=== PATIENT | female | born 1995 | race Caucasian/White ===

== ENCOUNTER → 2020-05-01 10:15 | Outpatient (CLI) | payer OTHER, SELFPAY ==
--- NOTE | ~2020-05-01 | US_ITS ---
EXAMINATION: US OB >= 14 weeks Fetus DATE: 05/01/2020 10:52 INDICATION: Second trimester anatomic survey TECHNIQUE: Real-time ultrasound of the pelvis was performed. COMPARISON: None. FINDINGS: There is a single living fetus in breech presentation. The placenta is anterior and 4.6 cm from the i nternal cervical os. heart rate is 141 beats per minute (bpm). cardiac activity and feta l movement are noted. The amniotic fluid index is subjectively normal. The following anatomy was identified as normal: 4 chamber heart 3 vessel cord cord insertion kidneys urinary bladder stomach spine diaphragm ventricles cisterna magna cerebellum The following biometric data were obtained: Biparietal diameter (BPD): 4.5 cm; head circumference (HC): 17.3 cm; abdominal circumference (AC): 14 .3 cm; femur length (FL): 2.9 cm. These measurements are concordant. Estimated weight is 291 g +/- 43 g, which correlates with the 54th percentile when 09/23/2020 is used as estimated date of delivery. As single measurements, these parameters are each equal to the following estimated gestational ages w ith ranges of +/- 2 standard deviations: BPD: 19 weeks 4 days ( 17 weeks 6 days - 21 weeks 2 days). HC: 19 weeks 6 days ( 18 weeks 3 days - 21 weeks 3 days). AC: 19 weeks 5 days ( 17 weeks 4 days - 21 weeks 5 days). FL: 19 weeks 0 days ( 17 weeks 2 days - 20 weeks 6 days). estimated gestational age based solely on measurements from this exam is 19 weeks 4 days +/- 1 weeks 3 days. IMPRESSION: 1. Single living fetus in breech presentation. 2. Estimated weight is 291 g +/- 43 g, which correlates with the 54th percentile when 09/23/2020 is used as estimated date of delivery. Reviewed, dictated and finalized at location A. IMPRESSION: 1. Single living fetus in breech presentation. 2. Estimated weight is 291 g +/- 43 g, which correlates with the 54th per centile when 09/23/2020 is used as estimated date of delivery.
== END ==
PROVIDERS: Visit Provider Obstetrics & Gynecology Gynecology
DX: Z34.92 Encounter for supervision of normal pregnancy, unspecified, second trimester (principal); Z36.9 Encounter for antenatal screening, unspecified
CPT/HCPCS: 76805

== ENCOUNTER → 2020-07-30 13:38 | Outpatient (CLI) | payer OTHER, SELFPAY ==
--- NOTE | ~2020-07-30 | US_ITS ---
EXAMINATION: US OB follow up DATE: 07/30/2020 13:57 INDICATION: Estimated size less than expected for estimated gestational age. Assess growt h and amniotic fluid index. TECHNIQUE: Real-time ultrasound of the pelvis was performed. The interpreting radiologist was not pre sent for the study. COMPARISON: 05/01/2020 FINDINGS: There is a single living fetus in vertex presentation. The placenta is anterior and not low-lying. F etal heart rate is 159 beats per minute (bpm). The amniotic fluid index is 16.7 cm, which is normal (5th%-95%: 8.6-24.2 cm at 32 weeks estimated gestational age). The following biometric data were obtained: BPD: 8.1 cm -> 32 weeks 3 days Head circumference: 30.2 cm -> 33 weeks 4 days Abdominal circumference: 27.9 cm -> 32 weeks 0 days Femur length: 5.8 cm -> 30 weeks 1 days These measurements are concordant. Head circumference to abdominal circumference ratio: 1.08 (normal range 0.96-1.14). Estimated weight: 1800 g (+/-) 270 g. or 3 lbs. 15 oz. (+/-) 10 oz. IMPRESSION: 1. Single living fetus in vertex presentation with heart rate of 159 bpm. 2. Normal amniotic fluid index of 16.7 cm. 3. Estimated weight is 23rd percentile by Hadlock criteria when 09/23/2020 is used as the estima rosalba date of delivery (LANCE). Please correlate with clinical information or earlier ultrasounds for mos t accurate LANCE. Reviewed, dictated and finalized at location H. [employer] TECHNICAL SUPERVISOR IMPRESSION: 1. Single living fetus in vertex presentation with heart rate of 159 bpm. 2. Normal amniotic fluid index of 16.7 cm. 3. Estimated weight is 23rd percentile by Hadlock criteria when 09/23/2020 is used as the estimated date of delivery (LANCE). Please correlate with clinica l information or earlier ultrasounds for most accurate LANCE.
== END ==
PROVIDERS: Visit Provider Obstetrics & Gynecology Gynecology
DX: O36.5990 Maternal care for other known or suspected poor fetal growth, unspecified trimester, not applicable or unspecified (principal); Z3A.00 Weeks of gestation of pregnancy not specified
CPT/HCPCS: 76816

== ENCOUNTER 2020-09-18 04:48 | Inpatient (IN) | payer OTHER, SELFPAY ==
[2020-09-18] VITALS (33 sets, daily range): BP systolic 118–142; BP diastolic 55–98; PULSE 81–104; RESP 18; TEMP 36.6–37.2; O2SAT 100; BMI 32.8
--- NOTE | 2020-09-18 05:19 | LDADM ---
This patient, Cresencio Bowers, was admitted to Labor/Delivery/Recovery 104 on 09/18/20 at 04:48. Plans for labor, pain management and were discussed with patient. Patient/family oriented to hospital policies and general routines including ID bracelet, bed and alarms, visiting hours, pain management, procedures, bathroom and other care routines, personal items, smoking policy, room service/diet and guest tray routines, security routines, and visiting hours. Patient/Family are encouraged to report perceived risks to care and to ask questions if they do not understand what they are told or what they should do. See OBIX for further documentation.
[2020-09-18] MEDS: OXYTOCIN 30 UNITS/NS 500 ML 30 UNITS/500 ML BAG 6 UNITS IV CONT (05:34)
[2020-09-18] MEDS: LACTATED RINGERS 1,000 ML 125 ML IV CONT (05:34)
[2020-09-18 05:38] LABS: Basophils Percent Auto 0.1 % (0.2-1.2); Eosinophils Percent Auto 0.3 % (0-4.4); Hematocrit 37.5 % (37.0-47.0); Hemoglobin 12.6 g/dL (12.0-15.0); Immature Granulocyte Absolute 0.09 K/mm3 (0.00-0.031); Immature Granulocyte Percent A 0.8 % (0-0.5); Lymphocytes Absolute Auto 2.33 K/mm3 (0.9-3.2); Lymphocytes Percent Auto 19.8 % (18.3-44.2); Mean Corpuscular HGB Conc 33.6 g/dl (32-36); Mean Corpuscular Hemoglobin 28.6 pg (26-34); Mean Corpuscular Volume 85.2 fl (80-100); Mean Platelet Volume 11.2 fl (7.4-10.4); Monocytes Absolute Auto 0.8 K/mm3 (0.1-0.6); Neutrophils Absolute Auto 8.5 K/mm3 (1.3-6.7); Platelet Count Result 202 k/mm3 (150-375); Red Cell Distribution Width 13.2 % (11.5-14.5); White Blood Count 11.8 K/mm3 (4.5-10.0)
[2020-09-18 07:50] LABS: Rapid Plasma Reagin Non-Reactive (NonReactive)
--- NOTE | 2020-09-18 12:13 | WPDOBADMIT ---
Obstetrics - Admit Note Admission Note: AROM clear fluid /-2 vertexPrenatal record reviewed. No pertinent additions to the history and/or any subsequent changes in the physical findings that are not consistent with the expected course of the were found. Additions to the history and/or subsequent changes in the physical findings follow. None.
[2020-09-18] MEDS: fentaNYL CITRATE INJ (*CRX) 100 MCG/2 ML VIAL IV PUSH (12:14)
--- NOTE | 2020-09-18 13:58 | PM.OBPRVD ---
OB - Delivery Note Procedure Delivery date: 09/18/20 Procedure: events: Labor Induction Intrapartal events: None Induction method: AROM and per pitocin protocol Delivery monitor: external FHT and external uterine Laceration Description: Vaginal - 2nd Degree (into right sulcus about 2cm above cervix) and Labial (B) Delivery repair: vicryl (3-0) Specimen: Yes (placenta) Quantitative Blood Loss (ml): 310 Anesthesia type: Local Disposition: floor Baby Date of : 09/18/20 Weeks of gestation at delivery: 39 gender: Male Weight (pounds): 6 Weight (ounces): 9 presentation: vertex position: Right Occiput Anterior Placenta delivery description: Spontaneous cord vessel description: 3 Vessels score one minute: 8 score five minutes: 9
--- NOTE | 2020-09-18 14:00 | PM.OBDSVD ---
DS: Admitting Diagnosis Admitting Diagnosis Admitting Diagnosis: IUP 39 2/7 wks MIL DS: Discharge Diagnosis Discharge Diagnosis (1) 39 weeks gestation of : Code(s): Z3A.39 - 39 weeks gestation of Status: Acute (2) (normal spontaneous vaginal delivery): Code(s): O80 - Encounter for full-term uncomplicated delivery Status: Acute OB - DS: Summary OB Procedures : Ultrasound OB Procedures Intrapartum: Spontaneous Vag Delivery OB Procedures: : None Peripartum Data Delivery Method: Natural Vaginal Laceration Description: Vaginal - 2nd Degree (right sulcus) and Labial (B) complications: none Status at Discharge Functional status at discharge: independent ambulation Overall status at discharge: patient is progressing back to baseline Time Spent with Patient Time attestation: Total time spent providing and/or coordinating discharge services: DS: Data Data Completed and Pending Pending studies at discharge: Pending at discharge 09/18/20 13:24 Surgical [PTH] Routine Labs on day of discharge: Labs from last 24 hours 09/18/20 09/18/20 09/18/20 05:15 05:15 05:15 WBC 11.8 H RBC 4.40 Hgb 12.6 Hct 37.5 MCV 85.2 MCH 28.6 MCHC 33.6 RDW 13.2 Plt Count 202 MPV 11.2 H Immature Gran % (Auto) 0.8 H Neut % (Auto) 72.0 Lymph % (Auto) 19.8 [place] % (Auto) 7.0 Eos % (Auto) 0.3 Baso % (Auto) 0.1 L Lymph # (Auto) 2.33 [place] # (Auto) 0.8 H Eos # (Auto) 0.0 Baso # (Auto) 0.0 Abs Immat Gran (auto) 0.09 H Absolute Neuts (auto) 8.5 H Absolute Nucleated RBC 0.0 Nucleated RBC % 0.0 RPR Non-reactive Blood Type A Positive Antibody Screen Negative Discharge Plan Discharge Attending physician on discharge: Anya Ruggiero Discharging Clinician: Tom Henderson Anticipated Discharge Date/Time: 09/20/20 14:01 Patient Disposition: Home, Self-Care Activity: may shower, may drive after 2 weeks and pelvic rest Diet: regular Discharge Instructions: Education: Mom and Baby Guide Given to: Mother Follow-Up: Call your delivering provider's office for an appointment to be seen in: 6 Weeks Mom and baby should come to the [facility] for the follow-up appointment. Appointment Date/Time: September 22, 2020 at 10:00 am What to expect at your follow-up visit: Physical Assessment Call [phone] if you are unable to keep your appointment time. BREAST CARE: * Wear a snug supportive bra. * For engorgement discomfort: Breast Feeding: * Apply warm moist washcloths * Express milk as needed to relieve engorgement * Wear loose clothing Bottle Feeding: * May apply ice packs * For sore nipples: * Identify correct latch-on * Apply warm moist washcloths before and after nursing * Air dry nipples after nursing * May apply Lansinoh cream to nipples EPISIOTOMY/PERINEAL CARE: * Until bleeding stops, use your sabino bottle after urinating * Change your pad frequently throughout the day * You may take sitz baths several times a day (fill your bathtub with warm water and soak for 20 minutes.) Do NOT bathe in the water * No tub baths until seen by your physician - You may shower ACTIVITY: * Rest as much as possible. * Do not exercise or lift anything heavier than your baby (such as laundry or other children.) * Avoid stairs or driving as much as possible. * Do not put anything into the vagina. No douching, tampons, or sexual activity until seen by physician. NOTIFY PHYSICIAN IF YOU HAVE ANY QUESTIONS OR IF ANY OF THE FOLLOWING SYMPTOMS OCCUR: * If your episiotomy or incision becomes red, swollen, or more painful than what you have experienced in the hospital. * If your vaginal bleeding becomes foul smelling. * If your vaginal bleeding becomes more
[2020-09-18] MEDS: OXYTOCIN 30 UNITS/NS 500 ML 30 UNITS/500 ML BAG 125 UNITS IV CONT (14:15)
[2020-09-18] MEDS: WITCH HAZEL 40 PADS 1 PAD TOPICAL ×2 (15:43→20:57)
[2020-09-18] MEDS: BENZOCAINE 20% AER SPR (*SP) 56 GM CAN 1 SPRAY TOPICAL ×2 (15:43→20:57)
[2020-09-18] MEDS: IBUPROFEN 600 MG TABLET PO ×2 (15:51→20:57)
--- NOTE | 2020-09-18 17:00 | PC.NURSE ---
Patient transferred to post room #291 via wheelchair. Support person present. Oriented to unit, room, information board, rooming in, admission packet and security measures. Patient verbalizes understanding.
[2020-09-19 04:56] LABS: Hematocrit 30.5 % (37.0-47.0); Hemoglobin 10.2 g/dL (12.0-15.0)
[2020-09-19] MEDS: MULTIVIT/MIN/PREN/FOL AC/IRON TABLET 1 TAB PO (08:27)
[2020-09-19] MEDS: IBUPROFEN 600 MG TABLET PO (08:27)
[2020-09-19 09:10] VITALS: BP 106/52; PULSE 82; RESP 18; TEMP 36.7
--- NOTE | 2020-09-19 12:10 | PM.OBPNVD ---
OB - PN: Subj Subjective Date/time seen: 09/19/20 12:10 doing well desires home OB - PN: Obj Data Labs CBC & Chem 7: 09/19/20 04:10 Labs: Laboratory Results - last 24 hr 09/19/20 04:10 Hgb 10.2 L Hct 30.5 L OB - PN A/P Assessment and Plan (1) (normal spontaneous vaginal delivery): Code(s): O80 - Encounter for full-term uncomplicated delivery Status: Acute Assessment and Plan: d/c home continue with pp care. Time Spent With Patient Time: Total time spent is greater than 50% in coordination of care (as documented) at patient's floor/unit and/or counseling patient: Exam GI: Other: ff below umbilicus
[2020-09-22 09:36] VITALS: BP 144/86; PULSE 94; RESP 20; TEMP 36.8; O2SAT 99
== END 2020-09-19 15:52 | disposition home or self-care (01) | DRG 807 ==
LOC: ANHLDR 09-23 09:25 → ANHOB2 09-23 09:25
PROVIDERS: Admitting Provider Obstetrics & Gynecology Gynecology; PCP Internal Medicine; Visit Provider Obstetrics & Gynecology
DX: O70.1 Second degree perineal laceration during delivery (principal); Z37.0 Single live birth; Z3A.39 39 weeks gestation of pregnancy
CPT/HCPCS: 36415; 85014; 85018; 85025; 86592; 86850; 86900; 86901; 88307; A9270; J2590; J3010; J7120

== ENCOUNTER 2020-09-23 10:59 | Outpatient (CLI) | payer OTHER, SELFPAY ==
[2020-09-23 11:25] VITALS: BP 142/78; PULSE 79
[2020-09-23 11:31] VITALS: BP 144/78; PULSE 83
[2020-09-23 11:33] LABS: Basophils Percent Auto 0.2 % (0.2-1.2); Eosinophils Absolute Auto 0.3 K/mm3 (0-0.3); Eosinophils Percent Auto 2.8 % (0-4.4); Hematocrit 34.2 % (37.0-47.0); Hemoglobin 11.5 g/dL (12.0-15.0); Immature Granulocyte Absolute 0.08 K/mm3 (0.00-0.031); Immature Granulocyte Percent A 0.8 % (0-0.5); Lymphocytes Absolute Auto 1.89 K/mm3 (0.9-3.2); Lymphocytes Percent Auto 18.7 % (18.3-44.2); Mean Corpuscular HGB Conc 33.6 g/dl (32-36); Mean Corpuscular Hemoglobin 29.4 pg (26-34); Mean Corpuscular Volume 87.5 fl (80-100); Mean Platelet Volume 10.4 fl (7.4-10.4); Monocytes Absolute Auto 0.6 K/mm3 (0.1-0.6); Monocytes Percent Auto 5.6 % (2.6-8.5); Neutrophils Absolute Auto 7.3 K/mm3 (1.3-6.7); Neutrophils Percent Auto 71.9 % (45.5-73.1); Platelet Count Result 246 k/mm3 (150-375); Red Blood Count 3.91 M/mm3 (4.2-5.4); Red Cell Distribution Width 13.5 % (11.5-14.5); White Blood Count 10.1 K/mm3 (4.5-10.0)
[2020-09-23 11:44] LABS: Partial Thromboplastin Time 28.1 SECONDS (22.3-36.8)
[2020-09-23 11:45] LABS: Alanine Aminotransferase 19 U/L (4-35); Albumin Level 3.7 g/dL (3.5-5.1); Alkaline Phosphatase 99 U/L (38-126); Anion Gap 5 mmol/L (8-16); Aspartate Amino Transferase 24 U/L (14-36); Bilirubin,Total 0.4 mg/dL (0.2-1.3); Blood Urea Nitrogen 10 mg/dL (7-17); Calcium 9.2 mg/dL (8.4-10.2); Carbon Dioxide 25 mmol/L (22-30); Chloride 107 mmol/L (98-107); Estimated Glomerular Filt Rate > 60; Glucose 84 mg/dL (65-105); Potassium 4.4 mmol/L (3.4-5.0); Sodium 137 mmol/L (137-145); Uric Acid 5.4 mg/dL (2.5-7.5)
[2020-09-23 11:46] VITALS: BP 138/79; PULSE 83
[2020-09-23 11:47] LABS: Lactate Dehydrogenase 545 U/L (313-618)
[2020-09-23 12:01] VITALS: BP 138/75; PULSE 82
[2020-09-23 12:16] VITALS: BP 158/89; PULSE 75
[2020-09-23 12:31] VITALS: BP 134/74; PULSE 83
--- NOTE | 2020-09-23 12:35 | PC.NURSE ---
Dr. Ruggiero returned page and informed of BP's and lab results. Discussed pt's BP's in the office were 150's/90's and the nurse practitioner from the office gave her a script for Labetalol [address] Ruggiero wants pt to hold on starting the Labetalol for now and check BP's at home 3 times a day- to call if SBP 160 or > and DBP 100 or >. OK to discharge to home. Pt to be seen in office next week.
== END 2020-09-23 12:53 | disposition home or self-care (01) ==
LOC: ANHOBOP 11:05 → ANHOBPP 11:07
PROVIDERS: PCP Internal Medicine; Visit Provider Obstetrics & Gynecology Gynecology
DX: O16.5 Unspecified maternal hypertension, complicating the puerperium (principal)
CPT/HCPCS: 36415; 80053; 83615; 84550; 85025; 85730; 99199